=== PATIENT | female | born 1965 | race Two or more races ===

== ENCOUNTER 2021-03-13 10:42 | Day surgery (SDC) | payer OTHER ==
[~2021-03-13] VITALS: Ht 157.5 cm; Wt 95.3 kg
[2021-03-13] MEDS ORDERED: diphenhydrAMINE 50 MG/ML VIAL ONE (13:16)
[2021-03-13] MEDS ORDERED: LIDOCAINE 2% 100 MG/5 ML UJET TP ONE ×2 (13:16→14:05)
[2021-03-13] MEDS ORDERED: MIDAZOLAM 5 MG/5 ML VIAL ONE (13:16)
[2021-03-13] MEDS ORDERED: fentaNYL citrate 0.05 MG/ML VIAL ONE (13:16)
[2021-03-13] MEDS ORDERED: MIDAZOLAM 2 MG/2 ML VIAL IVP ONE (14:05)
[2021-03-13] MEDS ORDERED: fentaNYL citrate 0.05 MG/ML VIAL IVP ONE (14:05)
== END 2021-03-13 14:40 | disposition home or self-care (01) ==
LOC: MDS 10:42 → MMU 12:36 → MDS 14:40
PROVIDERS: ATTEND Internal Medicine Gastroenterology
DX: K62.5 Hemorrhage of anus and rectum (principal); K59.00 Constipation, unspecified; Z90.49 Acquired absence of other specified parts of digestive tract; Z79.899 Other long term (current) drug therapy
CPT/HCPCS: 45378; J2250; J3010; J1200